=== PATIENT | male | born 1955 | race Caucasian/White ===

== ENCOUNTER → 2023-10-06 10:23 | Outpatient (BNVA) | payer MEDICARE, SELFPAY | PROVIDERS: PCP Family Medicine; Visit Provider Nurse Practitioner Family | DX: L40.0 Psoriasis vulgaris (principal); M25.50 Pain in unspecified joint; B35.1 Tinea unguium; L57.8 Other skin changes due to chronic exposure to nonionizing radiation; L81.4 Other melanin hyperpigmentation; D22.4 Melanocytic nevi of scalp and neck | CPT/HCPCS: 11102; 99204 ==

== ENCOUNTER → 2024-01-11 13:23 | Outpatient (BNVA) | payer MEDICARE, SELFPAY | PROVIDERS: PCP Family Medicine; Visit Provider Nurse Practitioner Family | DX: B35.3 Tinea pedis (principal); D69.2 Other nonthrombocytopenic purpura; D48.5 Neoplasm of uncertain behavior of skin; L40.0 Psoriasis vulgaris | CPT/HCPCS: 11102; 99214 ==

== ENCOUNTER → 2024-02-15 09:13 | Outpatient (BNVA) | payer MEDICARE, SELFPAY | PROVIDERS: PCP Family Medicine; Visit Provider Nurse Practitioner Family | DX: B35.3 Tinea pedis (principal); D69.2 Other nonthrombocytopenic purpura; L40.0 Psoriasis vulgaris | CPT/HCPCS: 99214 ==